=== PATIENT | female | born 1990 | race Caucasian/White ===

== ENCOUNTER 2018-09-12 23:05 | Emergency (ER) | payer OTHER ==
--- NOTE | 2018-09-12 23:13 | EDPHY ---
H & P Stated Complaint: SI/HI Source: Patient Exam Limitations: No limitations - Personal History LMP (Females 10-55): IUD In Place Current Tetanus/Diphtheria Vaccine: Yes Current Tetanus Diphtheria and Acellular Pertussis (TDAP): Yes - Medical/Surgical History Hx Asthma: No Hx Chronic Respiratory Disease: No Hx Diabetes: No Hx Cardiac Disease: No Hx Renal Disease: No Hx Cirrhosis: No Hx Alcoholism: No Hx HIV/AIDS: No Hx Splenectomy or Spleen Trauma: No Other PMH: left tubal - Social History Smoking Status: Never smoked Time Seen by Provider: 09/12/18 23:13 HPI/ROS: HPI: This is a 28-year-old female who presents with Chief Complaint: Suicidal ideation, homicidal ideation Location: psych Quality: Suicidal ideation, homicidal ideation Duration: Several days Signs and Symptoms: no auditory hallucinations, no visual hallucinations, + suicidal ideation with no plan, + homicidal ideation, + paranoia Timing: Acute on chronic Severity: Severe Context: Patient has a history of bipolar disorder, takes Concerta and Latuda, reports that she feels burn out over the holidays. She reports that she has thoughts of harming people around her, feeling that people are very critical of herself, and wanting to harm herself all at once. She reports that she may have delayed a couple hours taking her mood stabilizer and smoked too much marijuana today and this could have increased her symptoms. She reports that she can't think clearly, feels paranoid and agitated. She reports that she just wants to be tied down and given medications to go to sleep and wake up in the morning. She has a prior history of a suicide attempt at 16 years of age. Reports only slept 2 hr today. Modifying Factors: Regular psych medications Comment: ROS: A comprehensive 10 system review of systems is otherwise negative aside from elements mentioned in the history of present illness. MEDICAL/SURGICAL/SOCIAL HISTORY: Medical history: Bipolar Surgical history: Left tubal ligation Social history: Marijuana use. Has a boyfriend. Boyfriend's father is a psychologist. Use marijuana today. Family history noncontributory. CONSTITUTIONAL: Tidy, cooperative, holding knees and rocking back and forth on ER stretcher, awake and alert, no obvious distress HEENT: Atraumatic and normocephalic, PERRL, EOMI. Nares patent; no rhinorrhea; no nasal mucosal edema. Tympanic membranes clear. Oropharynx clear, no exudate and moist pink mucosa. Airway patent. No lymphadenopathy. No meningismus. Cardiovascular: Normal S1/S2, regular rate, regular rhythm, without murmur rub or gallop. PULMONARY/CHEST: Symmetrical and nontender. Clear to auscultation bilaterally. Good air movement. No accessory muscle usage. ABDOMEN: Soft, nondistended, nontender, no rebound, no guarding, no peritoneal signs, no masses or organomegaly. No CVAT. EXTREMITIES: 2/2 pulses, strength 5/5, no deformities, no clubbing, no cyanosis or edema. NEUROLOGICAL: no focal neuro deficits. GCS 15. SKIN: Warm and dry, no erythema. no rash. Good capillary refill. PSYCH: Poor eye contact, + flight of ideas, disorganized thought process, poor insight and judgment, no auditory hallucinations, no visual hallucinations, + suicidal ideation with no plan, + homicidal ideation, + paranoia (Guadalupe Delcid) Constitutional: Initial Vital Signs Temperature (C) 36.8 C 09/12/18 23:07 Heart Rate 95 09/12/18 23:07 Respiratory Rate 16 09/12/18 23:07 Blood Pressure 130/80 H 09/12/18 23:07 O2 Sat (%) 97 09/12/18 23:07 O2 Delivery Mode Room Air Allergies/Adverse Reactions: Sulfa (Sulfonamide Antibiotics) Allergy (Verified 09/12/18 23:10) Home Medications: Medication Instructions Recorded Concerta 09/12/18 Latuda 09/12/18 Medical Decision Making ED Course/Re-evaluation: Placed on M1 hold due to being gravely disabled upon arrival. Labs and UDS ordered. Patient given Zyprexa 5 mg and Ativan 1 mg 0020: Urine drug screen positive for marijuana 0025: Labs reviewed and grossly unremarkable. Medically clear for mental health evaluation. 0100: End of Shift. Signed over to Dr. Acosta pending mental health evaluation. This patient was seen under the supervision of my secondary supervising physician. I evaluated care for this patient independently. Discussed this patient with Dr. Acosta who did not see the patient. (Guadalupe Delcid) Differential Diagnosis: Differential diagnosis includes but is not limited to major depression, anxiety disorder, schizophrenia, bipolar disorder, intoxicant use, suicidal ideation, psychosis, john. (Guadalupe Delcid) Other Provider: 0045 care assumed from SHA Delcid pending mental health evaluation morning. 0700 patient signed out to Dr. Carcamo pending mental health evaluation. No issues during my care this patient overnight. (Jason Acosta) Patient has been evaluated by mental health and they have lifted the M1 hold. They feel she has an adequate safety plan and is low risk for self-harm. ( Alexander Carcamo) - Data Points Laboratory Results: Laboratory Results 09/12/18 23:45 09/12/18 23:45 Medications Given: Discontinued Medications Lorazepam (Ativan) 1 mg PO EDNOW ONE Stop: 09/12/18 23:33 Last Admin: 09/12/18 23:35 Dose: 1 mg Olanzapine (Zyprexa Zydis) 5 mg PO EDNOW ONE Stop: 09/12/18 23:57 Last Admin: 09/13/18 00:10 Dose: 5 mg Departure - Departure Clinical Impression: Bipolar affective, manic, severe w/ psych Condition: Good Instructions: Suicide Prevention (ED)
[2018-09-12] MEDS ORDERED: LORazepam 1 MG TAB PO ONE (23:32)
[2018-09-12 23:55] LABS: PLATELET COUNT 291 10^3/uL (150-400)
[2018-09-12] MEDS ORDERED: OLANZapine DISINTEGR 5 MG TAB PO ONE (23:56)
--- NOTE | 2018-09-13 14:00 | ASMTTCLDSP ---
TLC Discharge Disposition Disposition Notes: Notes: Pt has an appt with her therapist on Fri 12pm and has made an emergency appt with her psychiatrist for Friday at 2pm. Discharge Concerns/Recommendations: Notes: In consultation with [facility] ED physician, Alexander Carcamo MD, and on-call psychiatrist, Sancho cisneros MD, both concurred that pt does not appear to meet 27-65 criteria requiring psychiatric hospitalization as pt does not appear to be an imminent risk of harm to self/others/gravely disabled due to a mental illness Psychiatrist vacating M1 Sancho Cisneros MD Hold: Date and time M1 hold 09/13/2018 01:47 PM vacated (time format is hh:mm): Date Signed: 09/13/2018 02:00 PM Electronically Signed By:Yasmine Newton
[2018-09-13 14:04] VITALS: BP 122/65
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
== END 2018-09-13 14:04 | disposition home or self-care (01) ==
LOC: EEVIPCON 23:05
PROC: GZ11ZZZ Psychological Tests, Personality and Behavioral (ICD-10-PCS; principal; 2018-09-12)
DX: F31.2 Bipolar disorder, current episode manic severe with psychotic features (principal)
CPT/HCPCS: 80305; G0480

== ENCOUNTER 2018-09-21 15:24 | Emergency (ER) | payer OTHER ==
[2018-09-21] MEDS ORDERED: LORazepam 1 MG TAB PO ONE (15:45)
--- NOTE | 2018-09-21 15:45 | EDPHY ---
H & P Stated Complaint: Pt twitching and feeling anxious since Latuda dose change 2D [employer] PRESERV[employer]IST Time Seen by Provider: 09/21/18 15:37 HPI/ROS: CHIEF COMPLAINT: Nervous and anxious HISTORY OF PRESENT ILLNESS: The patient has a history of bipolar mood disorder and is currently on Latuda. She recently had her Latuda increased and has been developing symptoms of restlessness and anxiety. She reportedly drank alcohol last night to improve her symptoms. She has attempted to reach her psychiatrist without improvement today. The patient denies suicidal or homicidal ideation. The patient had been seen in the emergency department several weeks ago and was treated with Zyprexa and Ativan. REVIEW OF SYSTEMS: A comprehensive 10 point review of systems is otherwise negative aside from elements mentioned in the history of present illness. Source: Patient Exam Limitations: No limitations - Personal History Current Tetanus/Diphtheria Vaccine: Yes - Medical/Surgical History Hx Asthma: No Hx Chronic Respiratory Disease: No Hx Diabetes: No Hx Cardiac Disease: No Hx Renal Disease: No Hx Cirrhosis: No Hx Alcoholism: No Hx HIV/AIDS: No Hx Splenectomy or Spleen Trauma: No Other PMH: left tubal - Social History Smoking Status: Never smoked - Physical Exam Exam: General Appearance: Alert, no distress Eyes: Pupils equal and round no pallor or injection ENT, Mouth: Mucous membranes moist Respiratory: There are no retractions, lungs are clear to auscultation Cardiovascular: Regular rate and rhythm Gastrointestinal: Abdomen is soft and nontender, no masses, bowel sounds normal Neurological: 5/5 strength noted all 4 extremities Skin: Warm and dry, no rashes Musculoskeletal: Neck is supple nontender Extremities: symmetrical, full range of motion Psychiatric: Anxious, slightly agitated, denies suicidal ideation, restless Constitutional: Initial Vital Signs Temperature (C) 36.5 C 09/21/18 15:28 Heart Rate 100 09/21/18 15:28 Respiratory Rate 20 09/21/18 15:28 Blood Pressure 138/93 H 09/21/18 15:28 O2 Sat (%) 96 09/21/18 15:28 O2 Delivery Mode Room Air Allergies/Adverse Reactions: Sulfa (Sulfonamide Antibiotics) Allergy (Verified 09/21/18 15:26) Home Medications: Medication Instructions Recorded Concerta 09/12/18 Latuda 09/12/18 Medical Decision Making ED Course/Re-evaluation: Patient presents to the ED with an acute anxiety attack in the setting of known bipolar mood disorder with a recent increase in her Latuda. The patient denies suicidal or homicidal ideation. Consulted with her primary psychiatrist on the phone. The patient was given a mg of Ativan and 5 mg of Zyprexa. He would prefer for the patient to be discharged home and follow up as an outpatient. I re-evaluated the patient at 5:00 p.m.. She is feeling much better would like to be discharged home. The patient is very comfortable with a new prescription for Zyprexa at the recommendation of her psychiatrist. She will contact him tomorrow to schedule a follow-up visit. Differential Diagnosis: Differential diagnosis considered includes psychosis, bipolar mood disorder, suicidal ideation, homicidal ideation - Data Points Medications Given: Discontinued Medications Lorazepam (Ativan) 1 mg PO EDNOW ONE Stop: 09/21/18 15:46 Last Admin: 09/21/18 15:49 Dose: 1 mg Olanzapine (Olanzapine) 5 mg PO ONCE ONE Stop: 09/21/18 15:52 Last Admin: 09/21/18 16:03 Dose: 5 mg Departure - Departure Disposition: Home, Routine, Self-Care Clinical Impression: Anxiety, Bipolar 1 disorder Condition: Good Instructions: Anxiety (ED) Additional Instructions: 1. Please begin Zyprexa 5 mg daily. 2. Please contact your psychiatrist to schedule a follow-up visit within the next several days. 3. Please follow-up with the mental health resources provided in the ED today. 4. [facility] does operate a 24/ psychiatric crisis unit located at [address] [place] [address]. The telephone number for the 24 hour crisis center is [phone]. 5. Please return to the ED if you are feeling suicidal, having thoughts of harming yourself/others or should you feel unsafe or have worsening symptoms.
[2018-09-21] MEDS ORDERED: OLANZapine 5 MG TAB PO ONE (15:51)
[2018-09-21 17:20] VITALS: BP 106/92
== END 2018-09-21 17:20 | disposition home or self-care (01) ==
DX: F41.9 Anxiety disorder, unspecified (principal); F31.9 Bipolar disorder, unspecified